=== PATIENT | male | born 1985 | race Caucasian/White ===

== ENCOUNTER 2022-06-24 11:01 | Emergency (ER) | payer OTHER, SELFPAY ==
[2022-06-24 11:10] VITALS: BP 131/83; PULSE 120; RESP 18; TEMP 36.3; O2SAT 100
--- NOTE | 2022-06-24 11:15 | ECG_ITS ---
Measurements Intervals [place] Rate: 117 P: 76 TN: 112 QRS: 50 QRSD: 102 T: 67 QT: 332 QTc: 464 Interpretive Statements SINUS TACHYCARDIA WITH SHORT TN INTERVAL CONSIDER PRE-EXCITATION LEFT VENTRICULAR HYPERTROPHY AND ST-T CHANGE [VOLTAGE CRITERIA PLUS ST/T ABNORMALITY] NO PREVIOUS ECG AVAILABLE FOR COMPARISON Electronically Signed On 06-24-2022 17:06:33 CDT by Bonifacio Tafoya M.D.
[2022-06-24 12:02] VITALS: BP 124/83; PULSE 51; RESP 18; O2SAT 97
--- NOTE | 2022-06-24 12:08 | PC.NURSE ---
multiple attempts at IV access without success. EDP Ernesto made aware.
--- NOTE | 2022-06-24 12:08 | ED.CHESTPAIN ---
HPI - Chest Pain General Chief Complaint: Chest Pain Stated Complaint: chest pain intermittently last 2 days Time Seen by Provider: 06/24/22 11:55 History of Present Illness HPI narrative: 37-year-old male was recently diagnosed with CHF 3 weeks ago presents to the emergency room for evaluation of intermittent chest pain that he has had for 4 weeks. Patient reports his chest pain is worse when he is anxious. States this was to be on medications for his recently diagnosed CHF, but he has been incarcerated since his initial diagnosis Related Data Allergies Allergy/AdvReac Type Severity Reaction Status Date / Time ibuprofen AdvReac Mild Nausea Verified 06/24/22 11:02 Cat Dander Allergy Mild Swelling Uncoded 06/24/22 11:02 Review of Systems Review of Systems: CONSTITUTIONAL: Denies fever, chills, or sweats. EYES: Denies visual changes, redness, or discharge. ENT: Denies rhinorrhea, congestion, sore throat, or otalgia. CARDIOVASCULAR: Denies chest pain, palpitations, or edema. RESPIRATORY: Denies cough or dyspnea. GASTROINTESTINAL: Denies abdominal pain, nausea, vomiting, or diarrhea. GENITOURINARY: Denies dysuria or hematuria. SKIN: Denies rash or itching. MUSCULOSKELETAL: Denies back pain, joint pain, or myalgia. NEUROLOGIC: Denies headache, numbness, dizziness, or weakness. PSYCHIATRIC: Denies anxiety or depression. Exam Narrative: GENERAL: Well-appearing, well-nourished, no physical limitations, and in no acute distress. HEAD: Normocephalic, atraumatic. EYES: Conjunctivae normal, PERRLA and EOMI. CHEST: Clear to auscultation. No respiratory distress. No wheezes rales or rhonchi. No tenderness. HEART: Regular rate and rhythm. No murmur heard. Normal peripheral pulses. EXTREMITIES: Normal range of motion. No edema. No clubbing or cyanosis SKIN: Warm, dry, no rash. No noted wounds NEURO: No focal deficits. Alert and oriented x3. MAEW. CN's II-XI intact bilaterally, normal gait PSYCH: Cooperative. Normal mood and affect. Course Course Emergency Course: Patient requesting to leave AMA. Did not give their provider reason why. AMA form signed in the presence of the RN. Patient left with law enforcement. Vital Signs Vital signs: Vital Signs Temperature 36.3 C L 06/24/22 11:10 Pulse Rate 120 H 06/24/22 11:10 Respiratory Rate 18 06/24/22 11:10 Blood Pressure 131/83 06/24/22 11:10 Pulse Oximetry 100 06/24/22 11:10 Oxygen Delivery Room Air 06/24/22 11:10 Temperature 36.3 C L 06/24/22 11:10 Pulse Rate 51 L 06/24/22 12:02 Respiratory Rate 18 06/24/22 12:02 Blood Pressure 124/83 06/24/22 12:02 Pulse Oximetry 97 06/24/22 12:02 Oxygen Delivery Room Air 06/24/22 11:10 MDM - Chest Pain ECG Data EKG #1: EKG Interpretation: normal rate, sinus rhythm, no ectopy, normal QRS, normal QT, other (left atrial enlargement, left venricular hypertrophy) and no acute changes Discharge Plan Discharge Clinical Impression: Chest pain Patient Disposition: Left Against Medical Advice Condition: Stable Follow-up/Referrals: PHYSICIAN,SENIOR [employer] APPLICATION DEVELOPER [Primary Care Provider] - Time of Disposition: 15:55
--- NOTE | 2022-06-24 12:13 | PC.NURSE ---
Attempted to obtain blood and IV X2 without success. Provider aware
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
== END 2022-06-24 12:27 | disposition left against medical advice (07) ==
PROVIDERS: Emergency Provider Nurse Practitioner Family
DX: R07.9 Chest pain, unspecified (principal)
CPT/HCPCS: 93005; 99284

== ENCOUNTER 2025-10-20 16:43 | Emergency (ER) | payer OTHER, SELFPAY ==
--- OUTSIDE RECORDS SUMMARY | 2017-08-21 05:01 | XMS_ITS | Continuity of Care Document ---
Author Organization [facility] Hossein asyra Address [address] [place] [address] Phone Care Team Providers Care Link Trainer Maintenance Worker Name Role Phone Faheem Peralta MD Unavailable Unavailable Allergies, Adverse Reactions, Alerts Substance Reaction Status Criticality No Known Allergies Active No Inform ation Medications Medication Instructions Dosage Dose Quantity Effective Dates (start - stop) Status Indication Fill Status Comments Xanax 2 mg tablet take 1 tablet by oral route every 3 days as needed 2 MG 1 tablet - Active clindamycin 300 mg capsule take 1 capsule by oral route every 6 hours 300 MG 1 capsule - Active Advance Directives Directive Yes / No Effective Date File Name No Information Encounters Encounter Description Practice Location Reason(s) For Visit Diagnoses Date Provider Encounter Disposition [facility] , [address] [place] [address], [id number], tel:[phone] [facility] No Information Kathryn Mayen. [address], [place], [id number], [place]. tel:[phone] [facility] , [address] [place] [address], [id number], [place] tel:[phone] [facility] No Information Real Dempsey. [facility] [place], [place], [id number], [place]. tel:[phone] [facility] , [address] [place] [address], [id number], [place] tel:[phone] [facility] No Information Kathryn Mayen. [address], [address], [place], [place], [id number], [place]. tel:[phone] [facility] , [address] [place], [place], [id number], [place] tel:[phone] [place] [address] No Information Kathryn Mayen. [address], [address], [place], [place], [id number], [place]. tel:[phone] [facility] , [address] [place], [place], [id number], [place] tel:[phone] [place] [address] No Information Real Dempsey. [address] [place], [place], [id number], [place]. tel:[phone] [facility] , [facility] [place], [place], [id number], [place] tel:[phone] [place] [address] No Information Clifton Vargas. [facility] [place], [place], [id number], [place]. tel:[phone] [facility] , [facility] [place], [place], [id number], [place] tel:[phone] [place] [address] No Information Kathryn Mayen. [address], [place], [place], [address], [place]. tel:[phone] Family History Family Member Type Diagnosis Age At Onset No Information Payers Payer name Insurance type Identifiers Authorization(s) Com ments No Information Social History Type Description Quantity Date Captured Comments Alcohol Use Details Unknown Caffeine Use Details Unknown Tobacco Use Status No Information Smoking Status No Information Sex Male Current Gender Male (finding) Chief Complaint And Reason For Visit No Information History Of Present Illness Encounter Date Complaint History Of Prese nt Illness No Information Functional Status Date Description Comments No Information Instructions Date Instruction Additional Infor mation No Information Assessments Type Assessment Date No Information
--- NOTE | ~2025-10-20 | CT_ITS ---
EXAMINATION: CT abdomen pelvis wo con DATE: 10/20/2025 18:00 INDICATION: Possible kidney stone TECHNIQUE: Computed tomography (CT) of the abdomen and pelvis was performed without intravenous contrast. The dose-length product was 253.77 mGy-cm. Automated exposure control and iterative reconstruction technique were employed. COMPARISON: None. FINDINGS: Lung bases unremarkable. Heart size normal. No significant pleural or pericardial effusion. The liver, spleen, pancreas, adrenal glands and kidneys are unremarkable. Gallbladder is present. Nonobstructive bowel gas pattern. No significant vascular abnormality. No lymphadenopathy. No renal stones or hydronephrosis. There are surgical anastomotic changes of the bowel at multiple locations. Correlate clinically. No acute osseous abnormality. No acute osseous abnormality. IMPRESSION: 1. No acute abdominal abnormality. Reviewed, dictated and finalized at location O. [employer]OR [employer]INISH
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
[2025-10-20 16:50] VITALS: BP 129/76; PULSE 95; RESP 20; TEMP 36.7; O2SAT 96
--- OUTSIDE RECORDS SUMMARY | 2025-10-20 17:27 | XMS_ITS | Clinical Summary ---
Author Organization [facility] Address [address] [place] [address] Care Team Providers Care Field Machinist Name Role Phone Unavailable Primary Care Provider [...]
--- NOTE | 2025-10-20 18:07 | ED_ITS ---
HPI - General Adult General Chief complaint: Urogenital-Male Stated complaint: KIDNEY STONE L SIDED FLANK PAIN Time Seen by Provider: 10/20/25 16:59 History of Present Illness HPI narrative: 40-year-old male presenting with left flank pain. He is also reporting mild nausea, dysuria, subjective fevers, and testicle soreness. States he has a significant history of kidney stones. Denies hematuria, or bowel concerns, chest pain/shortness of breath. Related Data Allergies Allergy/AdvReac Type Severity Reaction Status Date / Time ibuprofen AdvReac Mild Nausea Verified 10/20/25 16:44 Cat Dander Allergy Mild Swelling Uncoded 06/24/22 11:02 Review of Systems 2 Review of Systems: All systems reviewed & are unremarkable except as noted in HPI and below Exam 2 Narrative: GENERAL: No acute distress. HEAD: Normocephalic, atraumatic. EYES: PERRLA and EOMI. ENT: Nares clear, no rhinorrhea or epistaxis. Mucous membranes moist. Oropharynx without tonsillar hypertrophy exudate or other lesions. Bilateral TMs pearly zheng non-bulging NECK: Supple. No adenopathy or masses. No carotid bruits or JVD CHEST: Clear to auscultation. No respiratory distress. No wheezes rales or rhonchi HEART: Regular rate and rhythm. No murmur heard. Normal peripheral pulses. ABDOMEN: Soft, nondistended, normal active bowel sounds. Mild TTP to left flank. EXTREMITIES: Normal range of motion. No edema. SKIN: Warm, dry, no rash. NEURO: No focal deficits. Alert and oriented x3. PSYCH: Normal mood and affect Course Vital Signs Vital signs: Vital Signs Temperature 98.1 F 10/20/25 16:50 Pulse Rate 95 10/20/25 16:50 Respiratory Rate 20 10/20/25 16:50 Blood Pressure 129/76 10/20/25 16:50 Pulse Oximetry 96 10/20/25 16:50 Temperature 98.1 F 10/20/25 16:50 Pulse Rate 88 10/20/25 20:49 Respiratory Rate 18 10/20/25 20:49 Blood Pressure 126/76 10/20/25 20:49 Pulse Oximetry 98 10/20/25 20:49 MDM MDM Narrative Medical decision making narrative: 40-year-old male presenting with left flank pain. He is also reporting mild nausea, dysuria, subjective fevers, and testicle soreness. States he has a significant history of kidney stones. Denies hematuria, or bowel concerns, chest pain/shortness of breath. Upon my initial assessment patient is nontoxic with stable vitals. Patient's abdomen is soft without significant pain or signs of surgical abdomen on serial exams. Lab and CT evaluations are reviewed and patient is felt to be a reasonable candidate for outpatient management. Patient was instructed as to limitations of CT and laboratory evaluation and encouraged to follow with PCP for further evaluation. Given reasons to return to the ED. Differential Diagnosis Differential Diagnosis: Differential diagnostic considerations for acute abdominal pain include surgical abdominal etiology, ischemic bowel, inflammatory bowel disease, gastritis, PUD, gastroenteritis, cardiac etiology, appendicitis, diverticulitis, bowel obstruction, kidney stone, pyelonephritis, abdominal aortic aneurysm, pancreatitis, constipation, endometriosis. Medical Records I have reviewed the following patient records and this information was taken into consideration when formulating the assessment and plan.: previous ER visits Lab Data MDM Lab Attestation statement: I personally reviewed the patient's lab results. 10/20/25 19:38 10/20/25 19:38 Labs: Lab Results 10/20/25 10/20/25 Range/Units 19:38 19:52 WBC 6.9 (4.5-10.0) K/mm3 RBC 4.55 L (4.6-6.20) M/mm3 Hgb 14.0 (14.0-18.0) g/dL Hct 41.1 L (42.0-52.0) % MCV 90.3 (80-100) fl MCH 30.8 (26-34) pg MCHC 34.1 (32-36) g/dl RDW 12.4 (11.5-14.5) % Plt Count 214 (150-375) k/mm3 MPV 8.6 (7.4-10.4) fl Immature Gran % (Auto) 0.3 (0-0.5) % Neut % (Auto) 66.8 (45.5-73.1) % Lymph % (Auto) 22.5 (18.3-44.2) % [place] % (Auto) 7.9 (2.6-8.5) % Eos % (Auto) 2.2 (0-4.4) % Baso % (Auto) 0.3 (0.2-1.2) % Lymph # (Auto) 1.56 (0.9-3.2) K/mm3 [place] # (Auto) 0.6 (0.1-0.6) K/mm3 Eos # (Auto) 0.2 (0-0.3) K/mm3 Baso # (Auto) 0.0 (0.0-0.1) K/mm3 Abs Immat Gran (auto) 0.02 (0.00-0.031) K/mm3 Absolute Neuts (auto) 4.6 (1.3-6.7) K/mm3 Absolute Nucleated RBC 0.000 (0.0-0.012) K/mm3 Nucleated RBC % 0.0 (0.0-0.2) % Sodium 139 (137-145) mmol/L Potassium 3.8 (3.4-5.0) mmol/L Chloride 102 (98-107) mmol/L Carbon Dioxide 26 (22-30) mmol/L Anion Gap 11 (4-12) mmol/L BUN 16 (9-20) mg/dL Creatinine 0.93 (0.7-1.3) mg/dL Estim Creat Clear Calc 101 ml/min Estimated GFR > 60 (59 - ) Glucose 89 (65-110) mg/dL Calcium 9.7 (8.4-10.2) mg/dL Total Bilirubin 0.5 (0.2-1.3) mg/dL AST 22 (17-59) U/L ALT 13 (6-50) U/L Alkaline Phosphatase 60 (38-126) U/L Total Protein 8.1 (6.3-8.2) g/dL Albumin 4.8 (3.5-5.1) g/dL Urine Color Dark yellow (Yellow) Urine Appearance Clear (Clear) Urine pH 5.5 (5.0-9.0) Ur Specific [place] 1.027 (1.001-1.035) Urine Protein Trace (Negative) mg/dL Urine Glucose (UA) Negative (Negative) mg/dL Urine Ketones 2+ H (Negative) mg/dL Ur Blood (Man) Negative (Negative) Urine Nitrate Negative (Negative) Urine Bilirubin Negative (Negative) Urine Urobilinogen 1.0 (<2.0) mg/dL Leukocyte Esterase Rfl Negative (Negative) AILYN/UL Urine RBC 0-2 (0-2) /hpf Urine WBC 0-5 (0-3) /hpf Ur Squamous Epith Cells None seen (Few) /hpf Urine Bacteria None seen /hpf Urine Casts 0-2 Imaging Data Attestation: I personally reviewed and interpreted this imaging study as follows: Radiologist's impression: ITS Impressions Abdomen/Pelvis CT 10/20/25 18:36 IMPRESSION: 1. No acute abdominal abnormality. Discharge Plan Discharge Clinical Impression: Flank pain Patient Disposition: Home Condition: Stable Additional Instructions: Return to the ER if you experience fever, abdominal pain with nausea and vomiting, you are unable to keep down liquids or solids, blood in the stool, pain or burning with urination, blood in the urine or any other symptoms that are concerning to you. Take anti-inflammatories (Aleve, Ibuprofen, Naproxen, etc) and Tylenol as needed for pain. Hydrate. Follow up with primary care doctor. Patient Language: Yi Prescriptions: New ondansetron 4 mg tablet,disintegrating 4 mg PO Q6H PRN (Reason: nausea and vomiting) Qty: 10 0RF Follow-up/Referrals: Ilir Fernandez MD [Physician, Family Practice] PHYSICIAN,SLITTING MACHINE OPERATOR HELPER [Primary Care Provider, Internal Medicine]
[2025-10-20 18:55] VITALS: BP 117/81; PULSE 70; RESP 16; O2SAT 98
[2025-10-20 19:43] LABS: Hematocrit 41.1 % (42.0-52.0); Hemoglobin 14.0 g/dL (14.0-18.0); Immature Granulocyte Percent A 0.3 % (0-0.5); Lymphocytes Absolute Auto 1.56 K/mm3 (0.9-3.2); Mean Corpuscular HGB Conc 34.1 g/dl (32-36); Mean Corpuscular Hemoglobin 30.8 pg (26-34); Mean Corpuscular Volume 90.3 fl (80-100); Nucleated Red Blood Cells Absolute Auto 0.000 K/mm3 (0.0-0.012); Nucleated Red Blood Cells Perc 0.0 % (0.0-0.2); Platelet Count Result 214 k/mm3 (150-375); Red Blood Count 4.55 M/mm3 (4.6-6.20); White Blood Count 6.9 K/mm3 (4.5-10.0)
[2025-10-20 19:56] LABS: Alanine Aminotransferase 13 U/L (6-50); Albumin Level 4.8 g/dL (3.5-5.1); Alkaline Phosphatase 60 U/L (38-126); Anion Gap 11 mmol/L (4-12); Aspartate Amino Transferase 22 U/L (17-59); Bilirubin,Total 0.5 mg/dL (0.2-1.3); Blood Urea Nitrogen 16 mg/dL (9-20); Calcium 9.7 mg/dL (8.4-10.2); Carbon Dioxide 26 mmol/L (22-30); Chloride 102 mmol/L (98-107); Estimated CRCL calculation 101 ml/min; Estimated Glomerular Filt Rate > 60; Glucose 89 mg/dL (65-110); Potassium 3.8 mmol/L (3.4-5.0); Sodium 139 mmol/L (137-145); Total Protein 8.1 g/dL (6.3-8.2)
[2025-10-20 20:02] LABS: Add Urine Microscopic? YES; Appearance Urine Clear (Clear); Glucose Urine UA Negative (Negative); Leukocyte Esterase Ur Negative LEU/UL (Negative); Nitrate Urine Negative (Negative); Non Pathogenic Casts 0-2; Specific Grav Ur 1.027 (1.001-1.035)
[2025-10-20 20:49] VITALS: BP 126/76; PULSE 88; RESP 18; O2SAT 98
== END 2025-10-20 20:50 | disposition home or self-care (01) ==
DX: R10.A2 Flank pain, left side (principal); Z87.442 Personal history of urinary calculi
CPT/HCPCS: 36415; 74176; 80053; 81001; 85025; 99284